=== PATIENT | male | born 1945 | race Caucasian/White ===

== ENCOUNTER → 2019-06-10 | Day surgery (SDC) | payer OTHER ==
[~2019-06-10] MED LIST: ACETAMINOPHEN 325 MG TABLET PO PRN; ALBU2.5V8 INH; ALBUTEROL SULFATE 2.5 MG/3 ML NEBU. NEB PRN; ATROPINE 0.5 MG/5 ML DISP.SYRIN. IV PRN; BALANCED SALT IRRIG OPHTH SOLN 15 ML BOTTLE. IRR ONE; BUDE10.2 IH; CATARACT OPHTH GEL 0.5 ML SYRINGE. OS ONE; CHONDROIT-SOD-HYALURONATE KIT. OS ONE; EPINEPHrine AMPULE 0.5 MG in BALANCED SALT IRRIG SOLN PLUS 500 ML IO ONE; ERYTHROMYCIN 0.5% OPHTH OINTMENT 1GM TUBE. OS ONE; FLUT16SP21 NS; HYALURONIDASE 75UNITS in LIDOCAINE 2% PF OPHTH 10 ML SYRINGE. OS ONE; IPRA3AMP29 NEB; KETOROLAC TROMETHAMINE 0.5% OPHTH SOLUTION BOTTLE. ONE; KETOROLAC TROMETHAMINE 0.5% OPHTH SOLUTION BOTTLE. OS SCH; LEVO100T82 PO; METO50TA29 PO; MONT10TA80 PO; MOXIFLOXACIN 0.5% OPHTH SOLUTION 3ML BOTTLE. OS SCH; OMEP40CA45 PO; ONDANSETRON PF 4 MG/2 ML VIAL. IV PRN; POVIDONE-IODINE 5% OPHTH SOLUTION 30ML BOTTLE. OS ONE; PROPOFOL 20 ML IV ONE; TETRACAINE 0.5% OPHTH SOLUTION 4ML BOTTLE. OS ONE; TETRACAINE 0.5% OPHTH SOLUTION 4ML BOTTLE. OU ONE; diphenhydrAMINE 50 MG/ML VIAL IV PRN; prednisoLONE ACETATE 1% OPHTH SUSPENSION 5ML BOTTLE. ONE; prednisoLONE ACETATE 1% OPHTH SUSPENSION 5ML BOTTLE. OS SCH
[2019-06-10] MEDS: MOXIFLOXACIN 0.5% OPHTH SOLUTION 3ML BOTTLE. OS SCH ×3 (09:35→09:44)
--- NOTE | 2019-06-10 10:26 | PDOC4 ---
Phaco IOL/Cataract/OS Date of Procedure: Jun 10, 2019 Preoperative Diagnosis: Senile Cataract, Left Eye Postoperative Diagnosis: Senile Cataract, Left Eye Anesthesia: Local (Block) with monitored anesthesia care Surgeon: Thony Hernandez D.O. Procedure: Left Phacoemulsification with Intraocular Lens Implant Findings: Senile Cataract Indications: Worsening vision interfering with patient's lifestyle Narrative: After discussing the risks, complications and alternatives, including but not limited to loss of vision, infection, bleeding, swelling, anesthetic reaction, capsule rupture with vitreous loss, etc., the patient was given a peribulbar block under mild IV sedation and cardiac monitoring. Pressure was applied to the eye for approximately 10 minutes. The patient was transferred to the main operating room and was prepped and draped in the usual sterile fashion and positioned under the microscope. A lid speculum was placed. A temporal clear corneal incision was made with a keratome and viscoelastic was injected into the eye. A side port incision was made. A continuous tear capsulorrhexis was performed, then hydrodissection was accomplished with balanced salt solution. The phacoemulsification needle was placed in the eye and the nucleus was emulsified. The remaining cortical material was removed with the irrigation and aspiration apparatus. The capsule was polished as needed. The posterior capsule was noted to be clean and intact. Viscoelastic was injected into the eye inflating the capsular bag. An intraocular lens was injected into the eye, unfolding as desired and was positioned in the capsular bag. The viscoelastic was aspirated from the eye. The wound edges were hydrated with balanced salt solution and there were no leaks. Viscoelastic was injected over the limbal incisions. Antibiotic and steroid were placed on the eye. The lid speculum was removed, the eye patched shut and a Brewer shield applied. There were no complications and the patient was taken to the PACU in good condition. THONY HERNANDZE DO Jun 10, 2019 10:26
[2019-06-10 10:42] VITALS: BP 120/80
== END | disposition home or self-care (01) ==
LOC: SURG 08:43
PROVIDERS: ATTEND Ophthalmology
DX: H25.12 Age-related nuclear cataract, left eye (principal); E78.00 Pure hypercholesterolemia, unspecified; J44.9 Chronic obstructive pulmonary disease, unspecified; K21.9 Gastro-esophageal reflux disease without esophagitis; Z87.891 Personal history of nicotine dependence; Z87.39 Personal history of other diseases of the musculoskeletal system and connective tissue; Z86.73 Personal history of transient ischemic attack (TIA), and cerebral infarction without residual deficits
CPT/HCPCS: 66984; J0171; J2704; V2632